=== PATIENT | female | born 1980 | race African-American/Black ===

== ENCOUNTER 2022-02-13 14:05 | Emergency (ER) | payer OTHER ==
[~2022-02-13] VITALS: Ht 157.5 cm; Wt 70.8 kg
[2022-02-13] MEDS ORDERED: ACETAMINOPHEN 325 MG TAB PO ONE (14:30)
[2022-02-13] MEDS ORDERED: ONDANSETRON HCL 4 MG ORAL DISINTEGRATING TAB PO ONE (14:30)
[2022-02-13] MEDS ORDERED: CLONIDINE HCL 0.1 MG TAB PO ONE (14:30)
[2022-02-13] MEDS ORDERED: METOPROLOL SUCC50 MG PO (14:33)
[2022-02-13] MEDS ORDERED: CRESTOR10 MG PO (14:33)
[2022-02-13] MEDS ORDERED: LEVOTHYROXINE75 MCG PO (14:33)
[2022-02-13] MEDS ORDERED: ONDANSETRON HCL 4 MG ORAL DISINTEGRATING TAB ONE (14:33)
== END 2022-02-13 15:09 | disposition home or self-care (01) ==
LOC: FSED 14:18
DX: I16.0 Hypertensive urgency (principal); Z79.899 Other long term (current) drug therapy
CPT/HCPCS: 80053; 81003; 82553; 84484; 85025; 93005; 99283; Q0162

== ENCOUNTER 2022-02-19 15:14 | Observation (INO) | payer MEDICARE, OTHER ==
[~2022-02-19] VITALS: Ht 157.5 cm; Wt 71.0 kg
[~2022-02-19 15:14] MED LIST: CRESTOR10 MG PO; LEVOTHYROXINE75 MCG PO; METOPROLOL SUCC50 MG PO
[2022-02-19] MEDS ORDERED: FLUOXETINE HCL10 MG PO (15:49)
[2022-02-19] MEDS ORDERED: TRAZODONE HCL100 MG PO (15:49)
[2022-02-19] MEDS ORDERED: ASPIRIN 325 MG TAB PO ONE (16:45)
[2022-02-19] MEDS ORDERED: ASPIRIN 81 MG CHEW TAB PO ONE (16:45)
[2022-02-19] MEDS ORDERED: ASPIRIN 81 MG CHEW TAB ONE (17:00)
[2022-02-19] MEDS ORDERED: TRAZODONE HCL50 MG PO (18:03)
[2022-02-19] MEDS ORDERED: SPIRONOLACTONE25 MG PO (18:03)
[2022-02-19] MEDS ORDERED: TYLENOL EXTRA500 MG PO (18:10)
[2022-02-19] MEDS ORDERED: ASPIRIN81 MG PO (18:10)
[2022-02-19 18:12] VITALS: BP 118/86
[2022-02-19 18:18] VITALS: BP 118/86
[2022-02-19 18:19] VITALS: BP 118/86
[2022-02-19 19:15] LABS: CREATINE KINASE 74 IU/L (29-168)
[2022-02-19 20:00] VITALS: BP 100/79
[2022-02-19] MEDS ORDERED: ACETAMINOPHEN 325 MG TAB PO PRN (22:00)
[2022-02-19] MEDS ORDERED: TRAZODONE HCL 50 MG TAB PO SCH ×2 (22:00)
[2022-02-20] VITALS: BP 101/68
[2022-02-20 00:44] LABS: CREATINE KINASE 66 IU/L (29-168)
[2022-02-20 04:00] VITALS: BP 97/67
[2022-02-20 06:30] VITALS: BP 97/67
[2022-02-20 07:20] LABS: BASOPHILS % 0.6 % (0.0-1.0); EOSINOPHILS # (AUTO) 0.1 (0.0-0.4); EOSINOPHILS % 1.3 % (0.0-6.0); HEMATOCRIT 43.8 % (34.2-44.1); HEMOGLOBIN 14.5 g/dL (12.0-16.0); LYMPHOCYTES # (AUTO) 2.1 (1.0-3.2); LYMPHOCYTES % 34.3 % (18.0-39.1); MEAN CORPUSCULAR HEMOGLOBIN 32.4 pg (28-32); MEAN CORPUSCULAR HGB CONC 33.1 g/dL (31-35); MEAN CORPUSCULAR VOLUME 97.8 fL (81-99); MONOCYTES # (AUTO) 0.6 (0.2-0.8); MONOCYTES % 9.5 % (4.4-11.3); NEUTROPHILS # (AUTO) 3.4 (2.1-6.9); NEUTROPHILS % 54.1 % (38.7-80.0); PLATELET COUNT 256 x10e3/uL (140-360); RED BLOOD COUNT 4.48 x10e6/uL (3.6-5.1); RED CELL DISTRIBUTION WIDTH 12.9 % (11.7-14.4)
[2022-02-20] MEDS ORDERED: LEVOTHYROXINE SODIUM 75 MCG TAB PO SCH (07:30)
[2022-02-20 07:41] LABS: ANION GAP 10.8 mmol/L (8-16); CALCIUM 8.9 mg/dL (8.4-10.2); POTASSIUM 3.8 mmol/L (3.5-5.1)
[2022-02-20 07:43] LABS: CREATINE KINASE 55 IU/L (29-168)
[2022-02-20 08:25] VITALS: BP 99/65
[2022-02-20] MEDS ORDERED: SPIRONOLACTONE 25 MG TAB PO SCH (09:00)
[2022-02-20] MEDS ORDERED: FLUOXETINE HCL 10 MG CAP PO SCH (09:00)
[2022-02-20] MEDS ORDERED: ASPIRIN 81 MG CHEW TAB PO SCH (09:00)
[2022-02-20] MEDS ORDERED: METOPROLOL SUCCINATE 50 MG TAB XL PO SCH (09:00)
[2022-02-20] MEDS ORDERED: SIMVASTATIN 20 MG TAB PO SCH (09:00)
[2022-02-20 09:30] VITALS: BP 99/65
[2022-02-20 12:13] VITALS: BP 105/70
== END 2022-02-20 15:13 | disposition home or self-care (01) ==
LOC: FSED 15:23 → ERHOLD 16:39 → MED/SURG3 17:45
PROVIDERS: ADMIT Family Medicine; ATTEND Family Medicine
DX: R07.89 Other chest pain (principal); E78.5 Hyperlipidemia, unspecified; I10 Essential (primary) hypertension; F41.9 Anxiety disorder, unspecified; Z20.822 Contact with and (suspected) exposure to COVID-19
CPT/HCPCS: 36415 ×2; 71045; 80048 ×2; 80076; 81003; 82550 ×2; 82553 ×2; 84484 ×2; 85025 ×2; 85379; 93005; 93306; 99284; G0378 ×2; U0002

== ENCOUNTER 2022-07-07 09:25 | Emergency (ER) | payer OTHER, MEDICARE ==
[~2022-07-07] VITALS: Ht 157.5 cm; Wt 74.9 kg
[~2022-07-07 09:25] MED LIST changes: +ASPIRIN81 MG PO; +FLUOXETINE HCL10 MG PO; +SPIRONOLACTONE25 MG PO; +TRAZODONE HCL100 MG PO; +TRAZODONE HCL50 MG PO; +TYLENOL EXTRA500 MG PO
[2022-07-07] MEDS ORDERED: MECLIZINE HCL12.5 MG PO (10:55)
== END 2022-07-07 11:04 | disposition home or self-care (01) ==
LOC: FSED 10:04
DX: R55 Syncope and collapse (principal); R42 Dizziness and giddiness; W01.0XXA Fall on same level from slipping, tripping and stumbling without subsequent striking against object, initial encounter; Y99.0 Civilian activity done for income or pay; I10 Essential (primary) hypertension; E03.9 Hypothyroidism, unspecified; F41.9 Anxiety disorder, unspecified
CPT/HCPCS: 70450; 80053; 81003; 82553; 84484; 85025; 93005; 99284

== ENCOUNTER 2022-07-10 20:54 | Emergency (ER) | payer MEDICARE, OTHER ==
[~2022-07-10] VITALS: Ht 157.5 cm; Wt 74.8 kg
[~2022-07-10 20:54] MED LIST changes: +MECLIZINE HCL12.5 MG PO
== END 2022-07-10 21:35 | disposition left against medical advice (07) ==
LOC: FSED 21:08
DX: R53.1 Weakness (principal)
CPT/HCPCS: 93005

== ENCOUNTER 2022-11-06 10:02 | Emergency (ER) | payer SELFPAY ==
[~2022-11-06] VITALS: Ht 157.5 cm; Wt 74.8 kg
[2022-11-06] MEDS ORDERED: ONDANSETRON ODT4 MG PO (10:59)
[2022-11-06] MEDS ORDERED: LEVSIN-SL0.125 MG SL (10:59)
[2022-11-06] MEDS ORDERED: DICYCLOMINE HCL 20 MG/2 ML VIAL IM ONE (11:00)
[2022-11-06] MEDS ORDERED: DICYCLOMINE HCL 20 MG TAB PO ONE (11:00)
[2022-11-06] MEDS ORDERED: FAMOTIDINE 20 MG TAB PO ONE (11:00)
[2022-11-06] MEDS ORDERED: FAMOTIDINE 20 MG TAB ONE (11:08)
[2022-11-06] MEDS ORDERED: DICYCLOMINE HCL 10 MG CAP ONE (11:12)
[2022-11-06] MEDS ORDERED: AMOXICILLIN500 MG PO (11:16)
[2022-11-06 11:39] VITALS: BP 138/92
== END 2022-11-06 11:42 | disposition home or self-care (01) ==
LOC: FSED 10:07
DX: R11.2 Nausea with vomiting, unspecified (principal); K52.9 Noninfective gastroenteritis and colitis, unspecified; I10 Essential (primary) hypertension; E78.5 Hyperlipidemia, unspecified
CPT/HCPCS: 81003; 81025; 83518; 87400; 99283

== ENCOUNTER 2025-07-04 15:39 | Emergency (ER) | payer OTHER ==
[~2025-07-04] VITALS: Ht 157.5 cm; Wt 76.3 kg
[~2025-07-04 15:39] MED LIST changes: +AMOXICILLIN500 MG PO; +BROMFED DM COU118 ML PO; +IBUPROFEN600 MG PO; +LEVSIN-SL0.125 MG SL; +ONDANSETRON ODT4 MG PO; +TAMIFLU75 MG PO
[2025-07-04] MEDS ORDERED: LOSARTAN POTASS25 MG PO (16:14)
[2025-07-04] MEDS ORDERED: CYCLOBENZAPRINE5 MG PO (16:21)
[2025-07-04] MEDS ORDERED: ACETAMINOPHEN 325 MG TAB ONE (16:24)
[2025-07-04 16:30] VITALS: PULSE 73; RESP 16; TEMP 97.7; O2SAT 97
[2025-07-04] MEDS: ACETAMINOPHEN 325 MG TAB PO ONE (16:34)
== END 2025-07-04 16:30 | disposition home or self-care (01) ==
LOC: FSED 15:47
DX: M54.50 Low back pain, unspecified (principal); I10 Essential (primary) hypertension; R73.03 Prediabetes; E78.5 Hyperlipidemia, unspecified; E03.9 Hypothyroidism, unspecified; F41.9 Anxiety disorder, unspecified; F32.A Depression, unspecified
CPT/HCPCS: 99283